=== PATIENT | female | born 1985 | race Caucasian/White ===

== ENCOUNTER 2016-05-11 17:50 | Emergency (ER) | payer OTHER ==
[~2016-05-11] VITALS: Ht 165.1 cm; Wt 63.6 kg
[~2016-05-11 17:50] MED LIST: ADV100INH IH; Advair; Docusate Sodium PO; Ibuprofen PO; Oxycodone/Acetaminophen PO; PNV1TABL62 PO; [UNRECOGNIZED DRUG - OTHER]
[2016-05-11 17:54] VITALS: BP 121/79; PULSE 81; RESP 16; O2SAT 97
[2016-05-11 18:53] LABS: BASOPHILS % (AUTO) 0.3 % (0-3); MONOCYTES % (AUTO) 8.5 % (4-12); Mean Corpuscular Hemoglobin 29.6 pg (27.0-35.0); NEUTROPHILS % (AUTO) 61.2 % (40-74); Platelet Count 297 bil/L (150-400)
[2016-05-11 19:09] LABS: TROPONIN T < 0.010 ug/L (0.0-0.011)
[2016-05-11 19:19] LABS: Magnesium 2.2 mg/dL (1.6-2.6)
--- NOTE | 2016-05-11 20:39 | ED.REPORT ---
HPI-Dyspnea / Wheezing Date of Service May 11, 2016 ED Provider: Louie Rodriguez MD Pt is a 31 y.o. female who is 10 weeks with a hx of asthma who presents to the ED c/o worsening left sided chest pain onset 3 days ago. Pt states that the pain worsens with cough, sneeze, or deep inspiration. She reports associated clear and yellow productive cough and rhinorrhea. She denies SOB. She states that she had a recent illness last week. Nursing Notes Stated Complaint: CHEST PAIN Chief Complaint: Chest Pain-Non Cardiac Nature Nursing Notes Reviewed: Yes Allergies: Coded Allergies: No Known Allergies (Unverified Allergy, Unknown, 05/11/16) Uncoded Allergies: CAT (Allergy, Severe, SNEEZING, 08/11/14) HORSE (Allergy, Severe, SNEEZING, 08/11/14) Scheduled ([Advair]) 1 DOSE BID Fluticasone/Salmeterol (Advair 100-50 Diskus) 60 Puffs/Inh Disk 1 PUFFS IH BID Pnv with Ca,No.72/Iron,Carb/FA ( Plus Iron Tablet) 1 Each Tablet 1 EACH PO DAILY Scheduled PRN ([Oxycodone/Acetaminophen]) 1 TAB TABLET 1 TAB PO Q4-6H PRN PRN For Pain ([Ibuprofen]) 800 MG TABLET 800 MG PO Q8 PRN PRN For Pain ([Docusate Sodium]) 100 MG CAPSULE 100 MG PO BID PRN PRN For Constipation Miscellaneous Medications ([maxairauto inhaler]) General Time Seen by MD: 20:15 Chief Complaint Chest pain Hx Obtained From: Patient Arrived By: Walk-in Sudden in Onset?: Yes Onset Occurred: 3 days ago Symptom Duration: Since onset Location: : Chest left Quality: Painful Severity: Current: Severe Recent Healthcare: No recent doctor visit, No recent hospitalization Similar Sx Previous: No Past Medical History Past Medical History asthma Past Surgical History none reported Smoking History Never Smoker Social History Alcohol Use: Denies alcohol use Drug Use: Denies drug use Other Social History: Good social support, Ambulatory Status Independent Review of Systems Respiratory: Reports: Prod cough, clear, Prod cough, yellow, Denies: Shortness of breath Cardiovascular: Reports: Chest pain Allergy / Immune: Reports: Rhinorrhea Complete sys rev & neg: except as marked. Physical Exam Initial Vital Signs Vital Signs (First) Date Time Temp Pulse Resp B/P Pulse Ox O2 Delivery O2 Flow Rate FiO2 05/11/16 17:54 36.3 81 16 121/79 97 Room Air Initial VS: Reviewed Head / Eyes: Atraumatic, Normocephalic Extremities: Vascular intact, Neuro intact Skin: Warm, Dry, No cyanosis Neurologic: Alert, Oriented, Nonfocal Psychiatric: Mood/affect normal, Behavior normal, Normal thought content General/Constitutional: Awake, Alert, No acute distress, Well appearing, Well developed, Well hydrated, Well nourished, Not toxic appearing Respiratory / Chest: Atraumatic, Breath sounds NL, Breath sounds = bilat, No respiratory distress, No rales, No rhonchi, No wheezing, No retractions, No stridor Cardiovascular: Heart rate NL, Regular rhythm, Heart sounds NL, No gallop, No murmurs, No rubs, Peripheral circulation NL Abdomen: Atraumatic, Soft, Non-tender, No guarding, No rebound Interpretation & Diagnostics Lab Results Interpretation Result Diagram: 05/11/16 1835 05/11/16 1835 Test 05/11/16 18:35 05/11/16 19:59 White Blood Count 11.2th/mm3 (3.8-10.1) Red Blood Count 3.92mil/mm3 (3.90-5.20) Hemoglobin 11.6g/dL (12.0-15.6) Hematocrit 34.9% (35.0-46.0) Mean Corpuscular Volume 89.0fL (81-100) Mean Corpuscular Hemoglobin 29.6pg (27.0-35.0) Mean Corpuscular Hemoglobin Concent 33.2% (32.0-37.0) Red Cell Distribution Width 12.6% (12.3-15.4) Platelet Count 297bil/L (150-400) Neutrophils (%) (Auto) 61.2% (40-74) Lymphocytes (%) (Auto) 27.7% (14-46) Monocytes (%) (Auto) 8.5% (4-12) Eosinophils (%) (Auto) 2.0% (0-5) Basophils (%) (Auto) 0.3% (0-3) D-Dimer < 0.5mg/L (<0.50) Sodium Level 136mEq/L (134-144) Potassium Level 3.7mEq/L (3.5-5.2) Chloride Level 100mEq/L (97-108) Carbon Dioxide Level 22mmol/L (18-29) Blood Urea Nitrogen 10mg/dL (6-20) Creatinine 0.52mg/dL (0.57-1.00) Estimat Glomerular Filtration Rate 195mL/min (>59) Glucose Level 71mg/dL (60-99) Calcium Level 8.9mg/dL (8.5-10.1) Magnesium Level 2.2mg/dL (1.6-2.6) Total Bilirubin 0.2mg/dL (0.0-1.2) Aspartate Amino Transf (AST/SGOT) 11U/L (0-50) Alanine Aminotransferase (ALT/SGPT) 11U/L (0-32) Alkaline Phosphatase 44U/L (25-150) Troponin T < 0.010ug/L (0.0-0.011) Total Protein 6.9g/dL (6.4-8.4) Albumin 4.0g/dL (3.4-5.0) Hold Irving Top Tube Received (Received) Hold Urine Received (Received) General Lab Results Interp 2: D-Dimer normal X-Ray Chest Interpretation Chest Xray Interpretation: IMPRESSION: 1. No acute cardiopulmonary disease. Dictated by: Keegan Phipps M.D. on 05/11/2016 at 21:46 Approved by: Keegan Phipps M.D. on 05/11/2016 at 21:47 Re-Eval/Medical Decision Med Decision/Clinical Course 31-year-old female 10 weeks presenting complaint of left chest pain times several days. She had URI symptoms the last 2 weeks which resolved. Now with left-sided chest pain. Chest x-ray clear. D-dimer negative. Troponins negative. EKG normal. Labs unremarkable. Vital signs stable. Possibly musculoskeletal versus postviral. Recommend follow-up with primary doctor 1-2 days as needed. Source of Hx: Old records Re-Evaluation/Progress : Time of Eval: 22:01 Re-Evaluation/Progress Note: Pt rechecked. Discussed imaging and plan for discharge, pt understands and agrees with plan. Discharge & Departure Impression: Primary Impression: Non-cardiac chest pain Additional Impression: Disposition: Home Discharge Condition All VS Reviewed: Yes Condition: Stable Additional Instructions: Your imaging and labs are reassuring. It is most likely that you have either musculoskeletal pain or inflammation of your lung from the recent upper respiratory infection. I recommend you use Tylenol and ibuprofen as needed for pain. Follow-up with your primary care provider if your symptoms persist. Seek care if you experience difficulty breathing, fever, sever chest pain, or any new or worsening symptoms. Referrals: Elizabeth Marks (PCP) [facility] Attestation Portions of this note were transcribed by Rommel Rodrigez. I, Dr. Rodriguez personally performed the history, physical exam and medical decision-making; I reviewed and confirmed the accuracy of the information in the transcribed note. Signed by: Nelida Garcia, 05/11/16 and 2203. copies to: Elizabeth Marks Ben M MD May 11, 2016 20:39 ROMMEL RODRIGEZ May 11, 2016 20:49
--- NOTE | 2016-05-11 21:49 | DRSVH ---
PROCEDURE: X-RAY CHEST ONE VIEW, PORTABLE ([id number]) INDICATIONS: CHEST PAIN TECHNIQUE: One view of the chest was acquired. COMPARISON: None. FINDINGS: Surgical changes and devices: None. Lungs and pleura: No pleural effusions or pneumothorax. Lungs are clear. Mediastinum: Mediastinal contours appear normal. Heart size is normal. Bones and chest wall: No suspicious bony lesions. Overlying soft tissues appear unremarkable. IMPRESSION: 1. No acute cardiopulmonary disease. Dictated by: Keegan Phipps M.D. on 05/11/2016 at 21:46 Approved by: Keegan Phipps M.D. on 05/11/2016 at 21:47
[2016-05-11 22:14] VITALS: BP 99/66; PULSE 77; RESP 18; O2SAT 100
== END 2016-05-11 22:15 | disposition home or self-care (01) ==
LOC: SED 17:50
DX: O99.89 Other specified diseases and conditions complicating pregnancy, childbirth and the puerperium (principal); R07.89 Other chest pain; J45.909 Unspecified asthma, uncomplicated; Z3A.10 10 weeks gestation of pregnancy
CPT/HCPCS: 36415; 71010; 80053; 81025; 83735; 84484; 85025; 85379; 93005; 99285; G0463

== ENCOUNTER 2016-12-09 02:02 | Inpatient (IN) | payer OTHER ==
[~2016-12-09] VITALS: Ht 167.6 cm; Wt 85.7 kg
[2016-12-09] MEDS ORDERED: Penicillin G K Inj 5,000,000 UNITS in Dextrose 5% Minibag Plus 100 ML IV ONE (07:55)
[2016-12-09] MEDS ORDERED: Oxytocin 10 Unit/mL Inj IM PRN ×2 (07:55→16:00)
[2016-12-09] MEDS ORDERED: Sodium Chloride LOK Flush 10 mL Syringe IVFLUSH PRN (07:55)
[2016-12-09] MEDS ORDERED: Hemorrhage Kit, Post Partum XX ONE ×2 (07:55→16:00)
[2016-12-09] MEDS ORDERED: Methylergonovine 0.2 mg/mL Inj IM PRN ×2 (07:55→16:00)
[2016-12-09] MEDS ORDERED: Carboprost 250 mCg/mL Inj IM PRN ×2 (07:55→16:00)
[2016-12-09] MEDS ORDERED: Oxytocin 30 Units/500 mL LR 30 UNITS in IV Premix 1 EACH IV PRN ×3 (07:55→16:00)
[2016-12-09] MEDS: Lactated Ringer's 1,000 ML IV PRN ×2 (08:34→12:46)
[2016-12-09 08:38] LABS: Mean Corpuscular Hemoglobin 28.7 pg (27.0-35.0); Mean Corpuscular Volume 87.5 fL (81-100)
[2016-12-09] MEDS: Penicillin G K Inj 3,000,000 UNITS in IV Premix 1 EACH IV SCH ×2 (12:47→16:30)
[2016-12-09] MEDS ORDERED: Lactated Ringer's 500 ML IV ONE (14:31)
[2016-12-09] MEDS ORDERED: Lactated Ringer's 1,000 ML IV SCH ×2 (14:31→15:58)
--- NOTE | 2016-12-09 14:34 | PCM.HPANE ---
Patient Data Surgeon Admitting Provider:Paul Suazo MD Attending Provider:Paul Suazo MD Primary Care Physician:Elizabeth Marks Other Provider:Sandra Gutierrez Anesthesia Reason for Visit Induction INDUCTION Ht/WT & BMI Body Mass Index Allergies Coded Allergies: No Known Allergies (Unverified Allergy, Unknown, 05/11/16) Uncoded Allergies: CAT (Allergy, Severe, SNEEZING, 08/11/14) HORSE (Allergy, Severe, SNEEZING, 08/11/14) Past Anesthesia History Anesthesia History: Denies:: Abnormal Airway, Anesthesia Reactions, Difficult Intubation, Fam Anesthesia Reaction Diabetes History Hx Diabetes?: No Medications Hypertension Medication: No Home Meds Incl Beta Em: No Active Scripts Pnv with Ca,No.72/Iron,Carb/FA ( Plus Iron Tablet)1 Each Tablet1 Each PO DAILY 30 Days Prov:Ben Barrios DO 08/12/14 [Docusate Sodium] (Colace)100 MG CAPSULE No Conflict [id number] Mg PO BID PRN For Constipation #30 CAPSULE Prov:Ben Barrios DO 08/12/14 Reported Medications [Advair] No Conflict Check1 Dose BID 08/19/14 Discontinued Reported Medications [maxairauto inhaler] No Conflict Check For Cough 08/11/14 Fluticasone/Salmeterol (Advair 100-50 Diskus)60 Puffs/Inh Disk1 Puffs IH BID #1 DISK Ref 0 08/11/14 Discontinued Scripts [Ibuprofen] (Motrin)800 MG TABLET No Conflict [id number] Mg PO Q8 PRN For Pain # 21 TABLET Prov:Ben Barrios DO 08/12/14 [Oxycodone/Acetaminophen] (Percocet 5-325)1 TAB TABLET No Conflict Check1 Tab PO Q4-6H PRN For Pain #20 TABLET Prov:Ben Barrios DO 08/12/14 History History of ENT Problems?: No HEENT History: Denies:: Abnormal Airway Denture Type: None Teeth Condition: Within Normal Limits Hx of Heart Problems?: No Cardiovascular History: Denies:: Chest Pain Congestive Heart Failure Hypertension Hx of Respiratory Problem?: No Respiratory History: Positive for:: Asthma Denies:: Tuberculosis Hx Neurologic Problems?: Yes Neurological History: Positive for:: Headaches Hx of GI Problems?: No Hx of Problems?: No Female Hx: Positive for:: Currently Hx Musculoskeletal Problems?: No Hx Surgeries?: No Hx Diabetes: No Hx Alcohol Use: NoHx Substance Use: No Smoking Status: Never Smoker Have You Smoked inLast 12 mo: No Stop/Bang BRIJESH Risk Assessment: Low Risk, <3 Yes Risk Assessment Category Category 1A: Patient has history of documented sleep apnea, and HAS NOT received any narcotic, sedative or anesthesia administration during this stay. Category 1B: Patient has history of documented sleep apnea, and HAS received any narcotic , sedative or anesthesia administration during this stay Category 2: Patient has SUSPECTED Obstructive Sleep Apnea, and HAS received any narcotic , sedative or anesthesia administration during this stay. Category 3: Patient has SUSPECTED Obstructive Sleep Apnea and HAS NOT received narcotic, sedative or anesthesia administration during this stay. Category 4: Outpatient in Procedural Areas with known sleep apnea or who screen positive for High Risk via the STOP/BANG questionnaire. Exam Exam General Appearance: Alert, Oriented X3, Cooperative, Moderate Distress (with contractions) HEENT/AIRWAY: MP 1 Lungs: Normal Air Movement Heart: Exam Unremarkable Meds/Labs/Diagnostics Admission Meds Current Medications Penicillin G Potassium 8506937 units/Dextrose/ Water 100 ml @ 240 mls/hr ONCE ONCE IV Last administered on 12/09/16 08:43; Start 12/09/16 at 07:55; Stop at 08:24; Status DC Penicillin G Potassium/ Dextrose/Premix (Pfizerpen Inj/ IV Premix) 50 ml @ 100 mls/hr Q4 IV Last administered on 12/09/16 12:47; Start 12/09/16 at 12:30 Labs Test 12/09/16 08:05 White Blood Count 8.8th/mm3 (3.8-10.1) Red Blood Count 4.08mil/mm3 (3.90-5.20) Hemoglobin 11.7g/dL (12.0-15.6) Hematocrit 35.7% (35.0-46.0) Mean Corpuscular Volume 87.5fL (81-100) Mean Corpuscular Hemoglobin 28.7pg (27.0-35.0) Mean Corpuscular Hemoglobin Concent 32.8% (32.0-37.0) Red Cell Distribution Width 14.5% (12.3-15.4) Platelet Count 195bil/L (150-400) Plan Impression Patient chart reviewed, patient interviewed and anesthestic plan with risks, benefits, and alternatives discussed, and informed consent obtained. ASA Physical Status: ASA1 Normal Healthy Anesthetic Plan: Epidural Bene/Risks/Altern/Consents: Yes HP Complete Prior to Induction: Yes Norman Cameron MD Dec 09, 2016 14:34
[2016-12-09] MEDS ORDERED: fentaNYL 2 mCg/mL-Bupiv 0.125% 100 ML EPIDURAL SCH (14:35)
[2016-12-09] MEDS ORDERED: fentaNYL-PF 50 mCg/mL 2 mL Inj IVPUSH PRN (14:35)
[2016-12-09] MEDS ORDERED: Ondansetron 2 mg/mL 2 mL Inj IVPUSH PRN (14:35)
[2016-12-09] MEDS ORDERED: EPHEDrine Sulfate 50 mg/mL Inj IVPUSH PRN (14:35)
[2016-12-09] MEDS ORDERED: Atropine 1 mg/10 mL (Code) Syringe IVPUSH PRN (14:35)
[2016-12-09] MEDS ORDERED: Benzocaine (Dermoplast) 20% 60 Gm Spray TOPICAL PRN (16:00)
[2016-12-09] MEDS ORDERED: LANOlin HPA 7 Gm Ointment TOPICAL PRN (16:00)
[2016-12-09] MEDS ORDERED: Witch Hazel-Glycerin Pads TOPICAL PRN (16:00)
[2016-12-09] MEDS ORDERED: Sodium Chloride LOK Flush 10 mL Syringe IVFLUSH SCH (16:30)
--- NOTE | 2016-12-09 17:22 | HP ---
[address] [address] HISTORY AND PHYSICAL PATIENT: BIANCA DESIR : 1985 MR#: [id number] ADMIT: 12/09/2016 JOB ID: [id number] HISTORY OF PRESENT ILLNESS: The patient is a 31-year-old, 2, para 1, at 40 weeks and 6 days being admitted for postdates . The patient has suspected large for gestational age infant. The prior delivery was difficult, with a 3rd degree midline perineal laceration. She presents with no significant complaints, occasional [place] Chavarria contractions. heart rate tracing is reactive, category 1, baseline 140 beats per minute. PAST MEDICAL HISTORY: Asthma. care was complicated by mild to moderate asthma; the patient was on Advair and albuterol. She had a low-lying placenta that resolved in July 2016. One of the ultrasounds showed the placenta 2 to 4 cm from the os. ALLERGIES: NKDA. MEDICATIONS: Advair, docusate sodium, fluconazole, vitamins, Proventil. SOCIAL HISTORY: She denies smoking, alcohol, illicit or recreational drug use. PHYSICAL EXAMINATION: Vital signs: Temperature 36.7, blood pressure 136/67, pulse 87, respiratory rate 15. General: In no apparent distress. Awake, alert, and oriented x3. HEENT: PERRLA. Chest: Good respiratory effort. Clear lungs bilaterally. No adventitious sounds. Cardiovascular: Regular rate and rhythm. Abdomen: Gravid. Fundal height measuring large for gestational age. Vaginal exam: The cervix is 4 cm dilated, 50% effaced, -2 station. Intact membranes. No discharge, cephalic presentation. Neurologic: Deep tendon reflexes 1+ bilaterally. LABORATORY: She is group B strep positive. Blood group is type A positive. Varicella immune, rubella immune. ASSESSMENT AND PLAN: This is a 31-year-old 2, para 1 at 40 weeks and 6 days. She is being admitted for induction of labor because of post-term . Induction consent was obtained. Different methods of induction were discussed. Since the cervix is favorable, Pitocin will be started for induction of labor. Penicillin will be started for group B strep prophylaxis. Epidural will be given as per patient's request. We will anticipate spontaneous vaginal delivery.
--- NOTE | 2016-12-09 18:13 | OP ---
[address] [address] OPERATIVE REPORT PATIENT: BIANCA DESIR : 1985 MR#: [id number] ADMIT: 12/09/2016 JOB ID: [id number] DATE OF SURGERY: 12/09/2016 SURGEON: Alessandro Perez MD PREOPERATIVE DIAGNOSIS(ES): A 31-year-old, 2, para 1, at 40 weeks and 6 days for induction of labor. POSTOPERATIVE DIAGNOSIS(ES): A 31-year-old, 2, para 2, status post spontaneous vaginal delivery at term. DELIVERY NOTE: The patient is a 31-year-old, 2, para two now, who presented to Labor and Delivery the morning of December 09, 2016 for induction of labor because of post-term . Her due date was December 03, 2016. The patient's care was uncomplicated. She was GBS positive and she received penicillin for group B strep prophylaxis. While on Labor and Delivery the patient was examined and found to be 4 cm dilated, 50% effaced, -2 station. Induction of labor with oxytocin was started. The patient was reexamined at 1:00 p.m. and was 5 cm dilated, 60% effaced, station -2. Artificial rupture of membrane was performed. Clear amniotic fluid was noted. Intrauterine pressure catheter was placed and Pitocin was titrated to achieve 200 [place] units. The patient received an epidural. She progressed to full dilation at 3:08 p.m. and started pushing at around the same time. She underwent spontaneous vaginal delivery at 3:34 p.m., delivered a female with Apgars 6 at one minute and 9 at five minutes. The patient had difficulty with delivery of the shoulder of the , however it lasted less than 60 seconds. The female had weight at delivery 4682 g. The patient had 2nd degree midline vaginal perineal laceration that was repaired with 3-0 Vicryl. The placenta was delivered at 3:50 p.m. and was found to be intact, with three-vessel cord. Cord blood was sent. The lunch truck operator was present at delivery. She had a slight increase in blood loss , estimated blood loss was 400 mL. The patient received one dose of Methergine 0.2 mg and 800 mcg of Cytotec rectally for control of hemostasis and to prevent the hemorrhage.
[2016-12-09] MEDS: Ascorbic Acid 500 mg Tablet PO SCH (18:42)
--- NOTE | 2016-12-09 20:26 | PCM.ANEP1 ---
Post Anesthesia PACU Phase 1 Assessment Anesthetic Administered: Epidural Level of Alertness: Awake, talking BUSTILLO's with Equal Strength: Yes Pain: No Nausea or Vomiting: No CV Function & Hydration Stable: Yes Airway Device: Oxygen Delivery: Room Air Lungs: Normal Air Movement Dermatome Level: Full Sensation PACU Phase 2 Assessment Complications: No Follow up Care: No Patient Instructions Provided: N/A Norman Cameron MD Dec 09, 2016 20:26
[2016-12-10] MEDS: oxyCODONE-Acetamin 5-325 mg Tablet PO PRN ×2 (02:03→06:03)
[2016-12-10 07:29] LABS: Mean Corpuscular Volume 88.1 fL (81-100)
[2016-12-10] MEDS: Ascorbic Acid 500 mg Tablet PO SCH (09:08)
--- NOTE | 2016-12-10 09:38 | PCM.DC.OB ---
Obstetrical Discharge Summary Date of Service Dec 10, 2016 Date of hospital admission Dec 09, 2016 at 07:35 Date of Discharge: Dec 10, 2016 Providers Admitting Physician: Paul Suazo MD Primary Care Physician: Elizabeth Marks Attending Physician: Paul Suazo MD Diagnosis at Time of Discharge s/P Term Problems: Brief History and Physical: The patient is a 31-year-old, 2, para 1, at 40 weeks and 6 days being admitted for postdates on 12/09/16. The patient has suspected large for gestational age EWF U/S 87%. She presented with no significant complaints, occasional [place] Chavarria contractions, heart rate tracing is reactive, category 1, baseline 140 beats per minute. Patient delivered via 12/09/16 at 1534 without complication. PPD1 patient doing well no complaints, lochia light, pain well controlled. General NAD, alert and oriented ambulating in room Cardiovascular: RRR +S2 +S1, no M/G/R, pulses +2 in all extremities, mild edema in lower extremity Lungs: CTA B/L Abdomen: fundus firm, non tender BS normo active Neuro: II-XII grossly intact, normal mood and affect. Hospital Course: The patient is a 31-year-old, 2, para 1, at 40 weeks and 6 days being admitted for postdates on 12/09/16. The patient has suspected large for gestational age infant EWF U/S 87%. She presented with no significant complaints, occasional [place] Chavarria contractions, heart rate tracing is reactive, category 1, baseline 140 beats per minute. Patient delivered via 12/09/16 at 1534 without complication. PPD1 patient doing well no complaints, lochia light, pain well controlled. ([Docusate Sodium]) 100 MG CAPSULE 100 MG PO BID PRN PRN For Constipation Prescribed by: ALONZO SIM DO ([Advair]) 1 DOSE BID (Reported) Last Taken: Unknown Dose on 12/09/16 ([Acetaminophen]) 325 MG TABLET 650 MG PO Q6H PRN PRN For Mild Pain or Fever Prescribed by: CAROL LOMAS DO ([Benzocaine]) 1 SPRAY/GM SPRAY 1 SPRAY TOPICAL PRN PRN PRN for perineal pain Prescribed by: CAROL LOMAS DO ([Lanolin]) 2 APPLIC/GM OINT 1 APPLIC TOPICAL PRN PRN PRN apply to nipples Prescribed by: CAROL LOMAS DO ([Ascorbic Acid]) 500 MG TABLET 500 MG PO BIDWM Prescribed by: CAROL LOMAS DO Docusate Sodium (Colace) 100 Mg Capsule 100 MG PO BID Prescribed by: CAROL LOMAS DO Ferrous Sulfate (Feosol) 325 Mg Tablet 325 MG PO BIDWM Prescribed by: CAROL LOMAS DO Pnv with Ca,No.72/Iron,Carb/FA ( Plus Iron Tablet) 1 Each Tablet 1 EACH PO DAILY Prescribed by: ALONZO SIM DO Last Taken: Unknown Dose on 12/09/16 oxyCODONE (oxyCODONE) 5 Mg Tablet 5-10 MG PO Q4H PRN PRN For Pain Prescribed by: CAROL LOMAS DO Discontinued Medications ([maxairauto inhaler]) (Reported) ([Oxycodone/Acetaminophen]) 1 TAB TABLET 1 TAB PO Q4-6H PRN PRN For Pain Prescribed by: ALONZO SIM DO ([Ibuprofen]) 800 MG TABLET 800 MG PO Q8 PRN PRN For Pain Prescribed by: ALONZO SIM DO Fluticasone/Salmeterol (Advair 100-50 Diskus) 60 Puffs/Inh Disk 1 PUFFS IH BID ( Reported) Discharge Medications: Colase 100 mg twice daily Iron replacement 325 mg daily Tylenol 650 mg every 6 hours Hydrocodone 5-325 for break through pain every 6 hours Continue vitamin Disposition DC boarder status Follow-up plan Follow up in 6 weeks at clinic Discharge Diet: No restrictions Discharge Activity-General: Pelvic Rest for 6 weeks, Pelvic Rest, Try not to overdue, No lifting >15 pounds for 2 weeks Patient instructions Colase 100 mg twice daily Iron replacement 325 mg daily Tylenol 650 mg every 6 hours Hydrocodone 5-325 for break through pain every 6 hours Continue vitamin Follow up in clinic in 6 weeks for post check Call out office if you experience worsening mood, thoughts of self harm or harming others, fever, chills, severe nausea and vomiting, worsening bleeding. Attending Statement: I saw patient and examined her. I agree with above plan. CAROL LOMAS DO Dec 10, 2016 09:32 Lore Lopez MD Dec 12, 2016 16:11
--- NOTE | 2016-12-10 09:40 | PCM.DIOB ---
CAROL LOMAS DO 12/10/16 0940: Obstetrical Disch Instruction Date of Service: Dec 10, 2016 Dates of Hospitalization Date of Hospital Admission Dec 09, 2016 at 07:35 Providers Admitting Physician: Paul Suazo MD Primary Care Physician: Elizabeth Marks Attending Physician: Paul Suazo MD Discharge Diagnosis Discharge Diagnosis S/P post date Problems: Diet Discharge Diet: No restrictions Activity Discharge Activity-General: Pelvic Rest for 6 weeks, Try not to overdue, Balance rest and activity, No lifting >15 pounds for 2 weeks Dressing and Incisional Care Hygiene: May shower, Perineal care, Sitz bath, Dermoplast spray, Witch Ayana pads Additional Instructions Discharge Instructions Colase 100 mg twice daily Iron replacement 325 mg daily Tylenol 650 mg every 6 hours Hydrocodone 5-325 for break through pain every 6 hours Continue vitamin Follow up in clinic in 6 weeks for post check Call out office if you experience worsening mood, thoughts of self harm or harming others, fever, chills, severe nausea and vomiting, worsening bleeding. Follow Up Plan Follow Up Plan Follow up in clinic in 6 weeks for post check Call out office if you experience worsening mood, thoughts of self harm or harming others, fever, chills, severe nausea and vomiting, worsening bleeding. Lore Lopez MD 12/12/16 1612: Obstetrical Disch Instruction Attending Statement I saw patient and examined her. I agree with above plan. CAROL LOMAS DO Dec 10, 2016 09:40 Lore Lopez MD Dec 12, 2016 16:12
[2016-12-10] MEDS ORDERED: Acetaminophen PO (09:42)
[2016-12-10] MEDS ORDERED: Benzocaine TOPICAL (09:42)
[2016-12-10] MEDS ORDERED: OXYC-530 PO (09:42)
[2016-12-10] MEDS ORDERED: Ascorbic Acid PO (09:42)
[2016-12-10] MEDS ORDERED: FERR-74 PO (09:42)
[2016-12-10] MEDS ORDERED: DOCU-41 PO (09:42)
[2016-12-10] MEDS ORDERED: Lanolin TOPICAL (09:42)
== END 2016-12-10 11:34 | disposition home or self-care (01) | DRG 775 ==
LOC: FBC 07:35
PROVIDERS: ADMIT Obstetrics & Gynecology; ATTEND Legal Medicine
PROC: 10E0XZZ Delivery of Products of Conception, External Approach (ICD-10-PCS; principal; 2016-12-09)
PROC: 0KQM0ZZ Repair Perineum Muscle, Open Approach (ICD-10-PCS; 2016-12-09)
PROC: 3E033VJ Introduction of Other Hormone into Peripheral Vein, Percutaneous Approach (ICD-10-PCS; 2016-12-09)
DX: O48.0 Post-term pregnancy (principal); O70.1 Second degree perineal laceration during delivery; O99.824 Streptococcus B carrier state complicating childbirth; Z3A.40 40 weeks gestation of pregnancy; Z37.0 Single live birth; O99.52 Diseases of the respiratory system complicating childbirth; J45.998 Other asthma